=== PATIENT | male | born 1995 | race Caucasian/White ===

== ENCOUNTER 2023-03-27 15:25 | Emergency (ER) | payer BC ==
[~2023-03-27] VITALS: Ht 182.9 cm; Wt 83.9 kg
[2023-03-27 16:12] VITALS: BP_SYST 132; PULSE 91; RESP 16; TEMP 98.2; O2SAT 100
[2023-03-27] MEDS ORDERED: cephALEXin 500 MG CAPSULE PO ONE (17:45)
[2023-03-27] MEDS ORDERED: BACI15OI13 TP (17:51)
[2023-03-27] MEDS ORDERED: CEPH-548 PO (17:51)
[2023-03-27 18:07] VITALS: BP_SYST 126; PULSE 81; RESP 17; TEMP 98.2; O2SAT 100
== END 2023-03-27 18:07 | disposition home or self-care (01) ==
LOC: SED 15:25
DX: S41.102A Unspecified open wound of left upper arm, initial encounter (principal); Z88.0 Allergy status to penicillin; Z79.899 Other long term (current) drug therapy; X58.XXXA Exposure to other specified factors, initial encounter; Y93.89 Activity, other specified; Y92.89 Other specified places as the place of occurrence of the external cause; Y99.8 Other external cause status
CPT/HCPCS: 99283